=== PATIENT | female | born 1995 | race African-American/Black ===

== ENCOUNTER 2021-10-13 07:50 | Emergency (ER) | payer OTHER, MEDICAID ==
[~2021-10-13] VITALS: Ht 160 cm; Wt 79.8 kg
[2021-10-13] MEDS ORDERED: NAPROSYN500 MG PO (08:19)
[2021-10-13] MEDS ORDERED: AMOXICILLIN 50500 MG PO (08:19)
[2021-10-13 08:28] VITALS: BP 115/85
== END 2021-10-13 08:32 | disposition home or self-care (01) ==
LOC: M.ERS 07:50
DX: K02.9 Dental caries, unspecified (principal); Z98.51 Tubal ligation status